=== PATIENT | female | born 1945 | race Caucasian/White ===

== ENCOUNTER 2021-02-25 12:46 | Day surgery (SDC) | payer MEDICARE, OTHER ==
[~2021-02-25] VITALS: Ht 160 cm; Wt 94.0 kg
[~2021-02-25 12:46] MED LIST: ADVIL200 M1 PO; ARIMIDEX1 MG PO; ATENOLOL50 MG PO; CALCIUM500 M1 PO; CITRACAL + D E1 EACH PO; CLONAZEPAM0.5 MG PO; CYCLOBENZAPRINE10 MG PO; DILTIAZEM 24HR180 MG PO; DULOXETINE HCL30 MG PO; ECOTRIN325 MG PO; GLUCOPHAGE XR500 MG PO; LASIX20 MG PO; LIPITOR40 MG PO; MOBIC15 MG PO; MUCINEX600 MG PO; MULTI VITAMIN1 EACH PO; PRINIVIL20 MG PO; PROAIR HFA8.5 GM INH; PROPRANOLOL HCL20 MG PO; PROZAC20 MG PO; VITAMIN B122500 MCG PO; VITAMIN D31000 UNI1 PO
--- NOTE | 2021-02-25 13:22 | NUR ---
vitals taken, no other needs at this time, call light withn reach
--- NOTE | 2021-02-25 15:13 | NUR ---
PT IS GIVEN VERBAL DC INSTRUCTIONS WITH PRESENT. THEY VERBALIZE UNDERSTANDING. SHE AMBULATES HERSELF OUT OF THE DEPARTMENT TO HER CAR.
--- NOTE | 2021-02-25 18:29 | OR ---
[facility] [address] [place], [place] [address] Signed DATE OF OPERATION: 02/25/2021 SURGEON: Joanna Shirley MD PREOPERATIVE DIAGNOSES: 1. Right upper outer quadrant breast mass. 2. History of right upper outer quadrant breast cancer with lumpectomy, radiation therapy, and hormonal management in 2007 (Dr. Herrera ). POSTOPERATIVE DIAGNOSES: 1. Right upper outer quadrant breast mass. 2. History of right upper outer quadrant breast cancer with lumpectomy, radiation therapy, and hormonal management in 2007 (Dr. Herrera ). PROCEDURE: Ultrasound-guided right upper outer quadrant breast biopsy biopsy). ANESTHESIA: Local 0.25% Marcaine with epinephrine. INDICATION: This 75-year-old white woman is a patient of Shaggy Chance PA-C and was referred by Dr. Wilson with findings of a palpable mass in the upper outer aspect of the right breast. This is in the same area in which she underwent lumpectomy, sentinel lymph node biopsy, radiation therapy, and Arimidex therapy in 2007 for diagnosed infiltrating ductal breast carcinoma. Mammograms have shown a calcific lesion in the area of prior excision for at least 3 years that I have reviewed, but a recent mammogram shows some changes in the area that are somewhat worrisome for malignant degeneration. She has no regional adenopathy or signs of metastatic disease. Rather than proceeding directly to mastectomy on a presumption, this represents malignancy. I have recommended biopsy to affirm that. An ultrasound-guided core biopsy would be most appropriate. If biopsy is proven to be benign, I would recommend excisional biopsy and only then if malignancy is identified, proceeding to mastectomy as definitive treatment. The patient and her understand this recommendation and wished to proceed with core biopsy at this time. FINDINGS: Ultrasound evaluation clearly showed the mass. It is palpable as well, however. Multiple biopsies were taken of at least 6 to 8 in total, which allowed some Electronically Signed By: JOANNA SHIRLEY MD 02/25/21 1829 PATIENT NAME: JESIKA FOFANA OPERATIVE REPORT DATE OF : 41 REPORT #: [id number] PHYSICIAN: JOANNA SHIRLEY MD PCP: SHAGGY CHANCE PAC REPORT IS CONFIDENTIAL AND NOT TO BE RELEASED WITHOUT AUTHORIZATION [facility] [address] [place], [place] [address] Signed decompression of it, at least in its bulkiness. There was a somewhat thin oily clear fluid emanated from the excision site of the biopsy site suggesting a somewhat cystic component to it as well. There were no complications. DESCRIPTION OF PROCEDURE: The patient was brought to the Day Surgery Area in room #6 and placed in a semi-recumbent position. Evaluation of the right breast with ultrasound confirmed the palpable mass as expected. The raquel-tumoral changes seen on mammogram were not particularly visualized on ultrasound. The breast was then prepared with a chlorhexidine solution and draped sterilely. 1% lidocaine was injected locally. A small incision made with an #11 blade. Ultrasound evaluation was undertaken once again after application of sterile sleeve to the ultrasound probe. The needle was aligned with the mass and the breast parenchyma elevated and multiple biopsies taken directly through the mass. A somewhat thickened, but clear fluid emanated from the site is small amount and the mass itself appeared to be less predominant. However, it remained on ultrasonographic visualization. To better align the needle, a more medial small incision was made and an additional biopsy taken, clearly penetrating through the central portion of the offending lesion providing a good core biopsy as well. Band-Aid was applied to the 2 biopsy sites. There appeared to be no sign of bleeding or other problem. CONCLUDING DIAGNOSIS: Breast mass well biopsied at this time. PLAN: If malignancy is noted, then treatment would be recommended to be total mastectomy, sentinel lymph node biopsy, possible axillary dissection. She has already undergone lumpectomy, radiation therapy, and hormonal management in 2007. If the lesion proves to be benign, I would recommend excisional biopsy to definitively ascertain that there is malignancy before proceeding any further. She understands this. MD HAN May/MODL /[id number] Electronically Signed By: JOANNA SHIRLEY MD 02/25/21 1829 PATIENT NAME: JESIKA FOFANA OPERATIVE REPORT DATE OF : 41 REPORT #: [id number] PHYSICIAN: JOANNA SHIRLEY MD PCP: [facility] REPORT IS CONFIDENTIAL AND NOT TO BE RELEASED WITHOUT AUTHORIZATION [facility] [address] [place] [address] Signed cc: BREANNA Bourne MD Copies: SHAGGY CHANCE ROBERT C MD ~ Electronically Signed By: JOANNA SHIRLEY MD 02/25/21 1829 PATIENT NAME: JESIKA FOFANA OPERATIVE REPORT DATE OF : 41 REPORT #: [id number] PHYSICIAN: JOANNA SIHRLEY MD PCP: SHAGGY CHANCE REPORT IS CONFIDENTIAL AND NOT TO BE RELEASED WITHOUT AUTHORIZATION
--- NOTE | 2021-02-26 12:18 | PATH ---
[facility] [address] [facility] [place], [place] [address] Signed SPECIMEN(S): A RIGHT BREAST, RUQ SPECIMEN SOURCE: A. RIGHT BREAST, RUQ CLINICAL HISTORY: Calcified mass FINAL PATHOLOGIC DIAGNOSIS: Breast, right, upper outer quadrant, needle core biopsies: - Dense fibrotic breast tissue with microcalcification. 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 There is no evidence of atypical duct hyperplasia or carcinoma present in these sections. TWK:emh:C2NR MICROSCOPIC EXAMINATION: Histologic sections of all submitted blocks are examined by light microscopy. These findings, together with the gross examination, support the pathologic diagnosis. GROSS DESCRIPTION: The specimen, labeled "KF," and designated on the requisition "right upper outer quadrant breast," is received in formalin and consists of four fatty fibrous tissue cores and fragments measuring up to 0.2 cm in diameter and ranging 0.4 to 1.0 cm in length. Cores and fragments are inked with eosin and entirely submitted in cassette(s) A1. Cold ischemic time: Cannot be determined because of lack of information Approximate time in formalin: Cannot be determined, no collection time is provided AT (under the direct supervision of a pathologist) The Gross Description was prepared using a voice recognition system. The report was reviewed for accuracy; however, sound-alike word errors, addition and/or deletions may occur. If there is any question about this report, please contact Client Services. PERFORMING LABORATORY: The technical component was performed by [employer], [address] [place] [address] (Lobsterman: Sparkle Carbajal MD; CLIA# [id number]). PATIENT NAME: JESIKA FOFANA PATHOLOGY DATE OF : 41 REPORT #: [id number] PHYSICIAN: GOOD MELARA PCP: SHAGGY LANDRY PAC REPORT IS CONFIDENTIAL AND NOT TO BE RELEASED WITHOUT AUTHORIZATION [facility] [address] [place], [place] [address] Signed Professional interpretation was performed by [employer] [facility], [address] [place] [address] (CLIA# [id number]). Diagnostician: Johnnie Kennedy MD Pathologist Electronically Signed 02/26/2021 Copies: ~ PATIENT NAME: JESIKA FOFANA PATHOLOGY DATE OF : 41 REPORT #: [id number] PHYSICIAN: GOOD MELARA PCP: SHAGGY LANDRY PAC REPORT IS CONFIDENTIAL AND NOT TO BE RELEASED WITHOUT AUTHORIZATION
[2021-03-18] MEDS ORDERED: DILT-XR180 MG PO (15:21)
[2021-03-18] MEDS ORDERED: MULTI-VITAMIN1 EACH PO (15:21)
[2021-03-18] MEDS ORDERED: CARBIDOPA25 MG PO (15:21)
[2021-03-18] MEDS ORDERED: K-TAB ER20 MEQ PO (15:22)
== END 2021-02-25 18:00 | disposition home or self-care (01) ==
LOC: OPS 12:46 → DS 12:46 → OPS 13:45
PROVIDERS: ATTEND Surgery
PROC: 0H9T3ZX Drainage of Right Breast, Percutaneous Approach, Diagnostic (ICD-10-PCS; principal; 2021-02-25)
DX: N60.31 Fibrosclerosis of right breast (principal); R92.0 Mammographic microcalcification found on diagnostic imaging of breast; E66.9 Obesity, unspecified; G20 Parkinson's disease; I10 Essential (primary) hypertension; J45.909 Unspecified asthma, uncomplicated; E78.5 Hyperlipidemia, unspecified; Z79.82 Long term (current) use of aspirin; Z85.3 Personal history of malignant neoplasm of breast; Z96.659 Presence of unspecified artificial knee joint; Z90.711 Acquired absence of uterus with remaining cervical stump; Z92.3 Personal history of irradiation; Z68.35 Body mass index [BMI] 35.0-35.9, adult
CPT/HCPCS: 88305

== ENCOUNTER 2021-03-19 07:31 | Day surgery (SDC) | payer MEDICARE, OTHER ==
[~2021-03-19] VITALS: Ht 160 cm; Wt 90.9 kg
[~2021-03-19 07:31] MED LIST changes: +CARBIDOPA25 MG PO; +DILT-XR180 MG PO; +K-TAB ER20 MEQ PO; +MULTI-VITAMIN1 EACH PO
--- NOTE | 2021-03-19 10:52 | NUR ---
03/19/21 1052 Jazlyn Wang 1035 PT ARRIVED IN PACU SLEEPY WITH NO C/O'S. 1045 OXYGEN REMOVED. SATS 98-100% ON RA.
[2021-03-19] MEDS ORDERED: IBUPROFEN600 MG PO (11:00)
[2021-03-19] MEDS ORDERED: HYDROCODON-ACE1 EA10 PO (11:01)
[2021-03-19] MEDS ORDERED: ACETAMINOPHEN500 MG PO (11:01)
--- NOTE | 2021-03-19 11:41 | NUR ---
1115: PT ARRIVES TO UNIT FROM PACU VIA STRETCHER. AWAKE AND ORIENTED ON ARRIVAL, CONVERSES APPROPRIATELY. VSS, RESP EVEN AND UNLABORED. DENIES PAIN AND NAUSEA AT THIS TME. JOHNNY PO FLUID INTAKE WELL. MINIMAL SHADOWING NOTED ON DRESSING. SCDS IN PLACE. NO NEEDS VOICED, CALL LIGHT WITHIN REACH. ATTENTIVE AT THE BEDSIDE
--- NOTE | 2021-03-19 12:31 | NUR ---
1115: PT WATCHES TV COMFORTABLY IN BED. VSS, RESP EVEN AND UNLABORED. CONTS TO DENY PAIN AND NAUSEA. NO CHANGE TO DRESSING AT THIS TIME. SCDS REMOVED AND IV CONVERTED TO SL. PT DANGLES AT THE BEDSIDE, JOHNNY WELL. DENIES DIZZINESS AND SOB. AMBULATES TO BR WITH STANDBY ASSIST FROM THIS RN. STEADY GAIT. SUCCESSFUL POSTOP VOID 300ML. BACK TO ROOM 4 TO PREPARE FOR D/C
--- NOTE | 2021-03-19 12:48 | NUR ---
1235: SL D/C'D WITH CATH TIP INTACT AND PRESSURE APPLIED TO SITE, WNL. D/C INSTRUCTIONS PROVIDED AND DISCUSSED ORDERED. PT VOICES UNDERSTANDING AND DENIES QUESTIONS AND CONCERNS AT THIS TIME. 1240: PT WHEELED OFF OF UNIT BY ADELE PIZANO FOR D/C. RESP EVEN AND UNLABORED. NO PHYSICAL S/S OF DISTRESS AT THIS TIME
--- NOTE | 2021-03-19 18:38 | EKG ---
[facility] [address] [facility] [place] [facility] [place], [place] [address] Signed Normal sinus rhythm Low voltage QRS Cannot rule out Anterior infarct , age undetermined Abnormal ECG No previous ECGs available Confirmed by ERNST VALERIO DO ([id number]) on 03/19/2021 6:38:06 PM Electronically Signed By: ERNST VALERIO DO 03/19/21 1838 PATIENT NAME: JESIKA FOFANA BARRETT Electrocardiogram DATE OF : 41 PHYSICIAN: ERNST VALERIO DO REPORT #: [id number] REPORT IS CONFIDENTIAL AND NOT TO BE RELEASED WITHOUT AUTHORIZATION
--- NOTE | 2021-03-21 16:26 | OR ---
[facility] [address] [place], [place] [address] Signed DATE OF OPERATION: 03/19/2021 SURGEON: Joanna Shirley MD PREOPERATIVE DIAGNOSES: 1. Right lateral complex breast mass suspicious for recurrent cancer. 2. History of right lumpectomy, sentinel lymph node biopsy and radiation therapy 2007 (Dr. Herrera, [place]). POSTOPERATIVE DIAGNOSES: 1. Right lateral complex breast mass suspicious for recurrent cancer. 2. History of right lumpectomy, sentinel lymph node biopsy and radiation therapy 2007 (Dr. Herrera, [place]). PROCEDURE: Partial mastectomy, excision of complex breast mass, right lateral breast. ANESTHESIA: General LMA, Napoleon Thornton CRNA and local 10 mL of 0.25% Marcaine with epinephrine. INDICATION: This 75-year-old white woman was referred by Dr. Wilson for consideration of right mastectomy. She is a patient of NYDIA Bourne. The patient underwent a breast cancer treatment for a T2N0M0 stage IIA ER/OH positive right breast cancer in [address] Herrera in [place]. Treatment included radiation therapy in addition to resection as well as Arimidex therapy. She has been noted on surveillance mammography to have a calcified mass approximately 3 cm in size in the right lateral breast. A more recent mammogram performed showed changes adjacent to the calcific mass, which is long-standing, which was concerning for malignancy. Although, she was referred for a total mastectomy on the basis of a presumption of recurrent breast cancer, the diagnosis has not yet been histologically confirmed. Initially, I had intended a core biopsy be performed to confirm malignancy and then proceed likely with mastectomy. However upon review of her many imaging studies and so forth, the dominant palpable mass corresponds to a long-standing calcific mass that may or may not be accurately obtained with a core biopsy device. My initial plan had been core biopsy followed by excisional biopsy of pathology was benign. Under the circumstances of uncertainty as to accuracy for the core biopsy, I have recommended at this time excisional biopsy, which would likely represent really partial mastectomy given its size with consideration for subsequent mastectomy if malignancy should in fact be identified. If there is no malignancy and the lesion is simply residual calcific nodule from prior intervention then no additional Electronically Signed By: JOANNA SHIRLEY MD 03/21/21 1626 PATIENT NAME: JESIKA FOFANA OPERATIVE REPORT DATE OF : 41 REPORT #: [id number] PHYSICIAN: JOANNA SHIRLEY MD PCP: SHAGGY LANDRY PAC REPORT IS CONFIDENTIAL AND NOT TO BE RELEASED WITHOUT AUTHORIZATION [facility] [address] [place], [place] [address] Signed therapy would be needed. The risks of bleeding, infection, cosmetic deformity, and so forth were reviewed with the patient and her , they understand and wished to proceed. FINDINGS: mass was quite firm and fibrotic overall. Wide excision was undertaken with clinically negative margins. It remains uncertain as to whether the lesion is malignant or not. Final pathology is pending. There was noted to be some fibrosis of the chest wall, likely from prior radiation therapy. There was no sign of adenopathy noted. DESCRIPTION OF PROCEDURE: The patient was brought to the operating room, given a general anesthetic by LMA technique. Preoperative antibiotic Ancef was given. Sequential compression device stockings were used and heparin subcutaneously administered. The abdomen was prepared with a chlorhexidine solution and draped sterilely. The palpable mass was rather bulky measuring at least the size of a golf ball or perhaps a plum. Elliptical incision of skin was undertaken directly over the mass in the lateral aspect of the right breast. Dissection was carried through the dermis with electrocautery. Some fibrotic changes were noted, likely related to prior radiation therapy. Wide resection was undertaken down to the chest wall, which did demonstrate fibrotic muscle fibers. Lateral excision was widely undertaken as well. Hemostasis was assured with electrocautery and 2-0 silk ties as the area was rather hypervascular. Clinically negative margins were accomplished. The wound was closed with interrupted 2-0 Vicryl in deep parenchymal area and excision of dog ears medially rather inferior and laterally undertaken. Good cosmesis was noted at conclusion. This did not represent simple excisional biopsy, but rather partial mastectomy actually given the extent of resection and so on. Steri-Strips were applied after application of 20 mL of 0.25% Marcaine with epinephrine. An Acticoat type dressing was applied. She was allowed to emerge from anesthesia, taken to the recovery room in good condition having suffered no complications. Sponge, needle, and counts reported as correct x3. Blood loss was estimated at 25 mL. MD HAN May/MODL /[id number] Electronically Signed By: JOANNA SHIRLEY MD 03/21/21 1626 PATIENT NAME: JESIKA FOFANA OPERATIVE REPORT DATE OF : 41 REPORT #: [id number] PHYSICIAN: JOANNA SHIRLEY MD PCP: SHAGGY LANDRY REPORT IS CONFIDENTIAL AND NOT TO BE RELEASED WITHOUT AUTHORIZATION [place] [address] [place] [address] Signed cc: BREANNA Bourne MD Copies: SHAGGY LANDRY ROBERT C MD ~ Electronically Signed By: JOANNA SHIRLEY MD 03/21/21 1626 PATIENT NAME: JESIKA FOFANA OPERATIVE REPORT DATE OF : 41 REPORT #: [id number] PHYSICIAN: JOANNA SHIRLEY MD PCP: SHAGGY LANDRY REPORT IS CONFIDENTIAL AND NOT TO BE RELEASED WITHOUT AUTHORIZATION
--- NOTE | 2021-03-26 15:21 | PATH ---
[facility] [address] [place], [place] [address] Signed SPECIMEN(S): A RIGHT LATERAL BREAST MASS SPECIMEN SOURCE: A. RIGHT LATERAL BREAST MASS CLINICAL HISTORY: Right breast cancer history. Specimen Time to Fixation- 03/19/2021 10:14:00 AM FINAL PATHOLOGIC DIAGNOSIS: Breast, right lateral, mass, excision: - Calcified fat necrosis, hyalinization and abscess formation of prior lumpectomy site. - Fat necrosis, abscess formation, chronic inflammation, and soft tissue necrosis of the soft tissue surrounding the previous lumpectomy site, extending into deep dermis. - No evidence of residual/recurrent carcinoma. COMMENT: The history of T2 N0 M0 ER/ND positive right breast cancer status post lumpectomy, chemotherapy, and radiation therapy in 2007, now presenting with right breast pain in lumpectomy scar is noted. The prior lumpectomy cavity and the surrounding soft tissue of the excision specimen were extensively sampled to reveal the above mentioned findings. There is no evidence of residual or recurrent carcinoma. NAL:cml:C2NR MICROSCOPIC EXAMINATION: Histologic sections of all submitted blocks are examined by light microscopy. These findings, together with the gross examination, support the pathologic diagnosis. GROSS DESCRIPTION: The specimen, labeled "KF," and designated on the requisition "right lateral breast mass, right breast ca history," is received in formalin and consists of an 81 g, irregularly-shaped, somewhat discoid, 8.2 x 6.3 x 3.6 cm lumpectomy specimen that is oriented with a short suture indicating superior and a long suture indicating lateral. On the anterior surface of the specimen is an irregularly shaped, pedroza, 5.5 x 5.2 cm, somewhat heart shaped segment of skin PATIENT NAME: JESIKA FOFANA PATHOLOGY DATE OF : 41 REPORT #: [id number] PHYSICIAN: GOOD PATHOLOGY PCP: SHAGGY LANDRY PAC REPORT IS CONFIDENTIAL AND NOT TO BE RELEASED WITHOUT AUTHORIZATION [facility] [address] [place], [place] [address] Signed with a centrally located, pedroza-pink, 1.6 x 1.5 cm flat, softened area that is 0.4 cm from the nearest resection margin. The specimen is inked as follows: superior = blue; inferior = green; anterior = yellow; posterior = black; medial = red; lateral = orange. The specimen is sectioned from superior to inferior into thirteen slices to reveal a 2.7 x 2.5 x 1.4 cm cavity (slice 9-13) that contains a copious amount of pedroza-white, pasty material. The cavity is lined by fibrous and partially calcified pedroza-white fibrous tissue. The cavity is associated with the softened skin surface lesion. The cavity is 0.6 cm from the medial margin, 0.6 cm from the inferior margin, 1.1 cm from the deep margin, 1.5 cm from the anterior margin, 2.2 cm from the lateral margin, and 5.2 cm from the superior margin. An additional discrete mass/lesion is not grossly identified. The remaining parenchyma is comprised of yellow fibrofatty and pedroza-white fibroglandular tissue. Fibroglandular tissue comprises approximately 5% of the remaining parenchyma. A biopsy marker is not grossly identified. Flavoring Machine Operator sections are submitted as follows: (A1-A2) - cavity to skin lesion, perpendicular sections of the slice 13. (A3) - cavity to inferior and medial margin (slice 12) (A4) - cavity to deep margin (slice 11) (A5) - cavity to medial margin (slice 11) (A6) - cavity to anterior margin (slice 11) (A7) - nearest lateral margin to cavity (slice 11) (A8) - perpendicular sections of the superior end (slice one) (A9) - client relations representative of remaining parenchyma (slice 5) Cold ischemic time: 3 minutes per requisition form. Formalin fixation time: Approximately 23.5 hours. AI (under the direct supervision of a pathologist) Per request by Dr. Aragon, the remainder of the fibrous tissue surrounding the cavity is submitted as follows: (A10) slice 9 (A11-A14) slice 10 (A11-A12 and A13-A14 are bivalved sections) (A15-A16) slice 11 (A16 is a bivalved section) (A17-A27) slice 12 (A17-A18 is a bivalved section; A19-A21, A22-A24,and A25-A27 are trivalved sections) (A28-A40) perpendicularly sectioned slice 13 entirely (A30-A31 is a bisected section) AI 03/25/21 12:20 PM The Gross Description was prepared using a voice recognition system. The report PATIENT NAME: JESIKA FOFANA PATHOLOGY DATE OF : 41 REPORT #: [id number] PHYSICIAN: GOOD MELARA PCP: SHAGGY LANDRY PAC REPORT IS CONFIDENTIAL AND NOT TO BE RELEASED WITHOUT AUTHORIZATION [address] [address] Signed was reviewed for accuracy; however, sound-alike word errors, addition and/or deletions may occur. If there is any question about this report, please contact Client Services. PERFORMING LABORATORY: The technical component was performed by [employer], [address] [place] [address] (Pharmacy Stock Clerk: Sparkle Carbajal MD; CLIA# [id number]). Professional interpretation [facility], [address] [place], [place] [address] [address] (CLIA# [id number]). Diagnostician: Kylah Aragon MD Pathologist Electronically Signed 03/26/2021 Copies: ~ PATIENT NAME: JESIKA FOFANA PATHOLOGY DATE OF : 41 REPORT #: [id number] PHYSICIAN: GOOD PATHOLOGY PCP: SHAGGY LANDRY PAC REPORT IS CONFIDENTIAL AND NOT TO BE RELEASED WITHOUT AUTHORIZATION
== END 2021-03-19 12:40 | disposition home or self-care (01) ==
LOC: DS 07:31
PROVIDERS: ATTEND Surgery
PROC: 0HBT0ZZ Excision of Right Breast, Open Approach (ICD-10-PCS; principal; 2021-03-19 08:15)
DX: N64.1 Fat necrosis of breast (principal); T81.42XA Infection following a procedure, deep incisional surgical site, initial encounter; N61.1 Abscess of the breast and nipple; Y83.8 Other surgical procedures as the cause of abnormal reaction of the patient, or of later complication, without mention of misadventure at the time of the procedure; I10 Essential (primary) hypertension; G20 Parkinson's disease; E78.5 Hyperlipidemia, unspecified; E66.9 Obesity, unspecified; Z68.35 Body mass index [BMI] 35.0-35.9, adult; Z88.5 Allergy status to narcotic agent; Z85.3 Personal history of malignant neoplasm of breast; Z92.3 Personal history of irradiation; Z96.659 Presence of unspecified artificial knee joint; Z90.711 Acquired absence of uterus with remaining cervical stump
CPT/HCPCS: 00404; 88305; 93005; 93010; J0131; J0690; J1100; J1885; J2001; J2405; J2704; J3010; J7121

== ENCOUNTER 2022-02-09 09:12 | Emergency (ER) | payer MEDICARE, OTHER ==
[~2022-02-09] VITALS: Ht 160 cm; Wt 87.1 kg
[~2022-02-09 09:12] MED LIST changes: +ACETAMINOPHEN500 MG PO; +HYDROCODON-ACE1 EA10 PO; +IBUPROFEN600 MG PO
--- OUTSIDE RECORDS SUMMARY | 2022-02-09 09:16 | XMS ---
PreManage Notification: JESIKA FOFANA Security Director Phone Events No recent Security Events currently on file [facility] There are no care providers on record at this time. Neftaly has no Care Guidelines for this patient. [facility] VISIT COUNT (12 MO.) 1 KIN [facility]er TOTAL 1 NOTE: Visits indicate total known visits. ED/UCC VISIT TRACKING (12 MO.) 02/09/2022 09:13 [facility] [place] TYPE: Emergency COMPLAINT: - UNABLE TO EAT, PAIN IN ABDOM/BACK,WEAKNESS INPATIENT VISIT TRACKING (12 MO.) No inpatient visits to display in this time frame [email or web address]
[2022-02-09] MEDS ORDERED: CARBIDOPA-LEVO1 EAC1 PO (09:39)
[2022-02-09] MEDS ORDERED: LISINOPRIL-HCT1 EACH PO (09:39)
[2022-02-09] MEDS ORDERED: FLUOXETINE HCL20 MG PO (09:39)
[2022-02-09] MEDS ORDERED: METFORMIN HCL500 M1 PO (09:39)
[2022-02-09] MEDS ORDERED: OMEPRAZOLE20 MG PO (09:39)
[2022-02-09] MEDS ORDERED: POTASSIUM CHLO10 ME1 PO (09:40)
[2022-02-09] MEDS ORDERED: CARAFATE1 GM PO (14:54)
--- NOTE | 2022-02-12 11:42 | EKG ---
[facility] [address] [facility] [place] [address] Signed Normal sinus rhythm Low voltage QRS Inferior infarct , age undetermined Cannot rule out Anterior infarct , age undetermined Abnormal ECG No previous ECGs available Confirmed by CARTER JUSTICE MD ([id number]) on 02/12/2022 11:41:58 AM Electronically Signed By: CARTER JUSTICE MD 02/12/22 1142 PATIENT NAME: JESIKA FOFANA BARRETT Electrocardiogram DATE OF : 41 PHYSICIAN: CARTER JUSTICE MD REPORT #: [id number] REPORT IS CONFIDENTIAL AND NOT TO BE RELEASED WITHOUT AUTHORIZATION
== END 2022-02-09 15:00 | disposition home or self-care (01) ==
LOC: ED 09:12
DX: K21.9 Gastro-esophageal reflux disease without esophagitis (principal); N17.9 Acute kidney failure, unspecified; Z85.3 Personal history of malignant neoplasm of breast; G20 Parkinson's disease; Z88.5 Allergy status to narcotic agent; Z91.030 Bee allergy status; Z79.899 Other long term (current) drug therapy; Z79.84 Long term (current) use of oral hypoglycemic drugs; Z79.82 Long term (current) use of aspirin; Z20.822 Contact with and (suspected) exposure to COVID-19
CPT/HCPCS: 36415; 71045; 74176; 74177; 80053; 81001; 83690; 84484; 85025; 87502; 93005; 93010; 99284-25; C9803; U0003

== ENCOUNTER 2025-07-09 20:18 | Emergency (ER) | payer MEDICARE, OTHER ==
[~2025-07-09] VITALS: Ht 160 cm; Wt 71.7 kg
--- NOTE | ~2025-07-09 | EKG ---
[facility] [address] [facility] [place], [place] [address] Draft EK completed, results pending confirmation PATIENT NAME: JESIKA FOFANA BARRETT Electrocardiogram DATE OF : 41 PHYSICIAN: PRELIMINARY REPORT #: [id number] REPORT IS CONFIDENTIAL AND NOT TO BE RELEASED WITHOUT AUTHORIZATION
[~2025-07-09 20:18] MED LIST changes: +CARAFATE1 GM PO; +CARBIDOPA-LEVO1 EAC1 PO; +FLUOXETINE HCL20 MG PO; +LISINOPRIL-HCT1 EACH PO; +METFORMIN HCL500 M1 PO; +OMEPRAZOLE20 MG PO; +POTASSIUM CHLO10 ME1 PO
--- OUTSIDE RECORDS SUMMARY | 2025-07-09 20:19 | XMS ---
PreManage Notification: JESIKA FOFANA Security Manager Universal Events No recent Security Events currently on file [facility] There are no care providers on record at this time. Neftaly has no Care Guidelines for this patient. [facility] VISIT COUNT (12 MO.) 1 KIN Shaffer TOTAL 1 NOTE: Visits indicate total known visits. ED/UCC VISIT TRACKING (12 MO.) 07/09/2025 20:18 [facility] [place] TYPE: Emergency COMPLAINT: - SEIZURE INPATIENT VISIT TRACKING (12 MO.) No inpatient visits to display in this time frame [email or web address]
[2025-07-09 20:43] LABS: BLOOD/HGB, URINE NEGATIVE (Negative); KETONE, URINE SMALL (Negative); LEUK ESTERASE, URINE NEGATIVE (negative); NITRITE, URINE NEGATIVE (negative)
[2025-07-09 20:55] LABS: ALCOHOL, MEDICAL <3 ng/dL (<3); ALT (SGPT) 9 U/L (14-59); AST (SGOT) 13 U/L (15-37); GLOMERULAR FILTRATION RATE,EST 85 mL/min (>60); PROTEIN, TOTAL 7.4 g/dL (6.4-8.2); UREA NITROGEN 19 mg/dL (7-18)
[2025-07-09 20:55] LABS: BASOPHILS 0.4 % (0.1-1.2); EOSINOPHILS 0.7 % (0.7-5.8); LYMPHOCYTES 21.0 % (19.3-51.7); MCH 31.3 PG (25.6-32.2); MCHC 33.8 g/dL (32.2-35.5); MCV 92.7 fL (79.4-94.8); MONOCYTES 8.1 % (4.7-12.5); NEUTROPHILS 69.5 % (34.0-71.1); RBC 4.53 M/uL (3.93-5.22)
[2025-07-09 20:57] LABS: AMPHETAMINES, URINE NEGATIVE (NEGATIVE); BARBITURATES, URINE NEGATIVE (NEGATIVE); BENZODIAZEPINE, URINE NEGATIVE (NEGATIVE); CANNABINOID, URINE NEGATIVE (NEGATIVE); COCAINE, URINE NEGATIVE (NEGATIVE); ECSTASY, URINE NEGATIVE (NEGATIVE); FENTANYL, URINE NEGATIVE (NEGATIVE); METHADONE, URINE NEGATIVE (NEGATIVE); OPIATES, URINE NEGATIVE (NEGATIVE); OXYCODONE, URINE NEGATIVE (NEGATIVE); PHENCYCLIDINE, URINE NEGATIVE (NEGATIVE)
[2025-07-09] MEDS ORDERED: MAG-OXIDE200 MG PO (20:59)
[2025-07-09] MEDS ORDERED: ASPIRIN81 MG PO (20:59)
[2025-07-09 22:01] VITALS: BP 162/94
[2025-07-10] MEDS ORDERED: CLONAZEPAM0.5 MG PO (20:31)
== END 2025-07-09 22:38 | disposition home or self-care (01) ==
LOC: ED 20:18
PROVIDERS: Internal Medicine
DX: G40.909 Epilepsy, unspecified, not intractable, without status epilepticus (principal); Z88.5 Allergy status to narcotic agent; Z88.8 Allergy status to other drugs, medicaments and biological substances; Z91.030 Bee allergy status; Z79.899 Other long term (current) drug therapy
CPT/HCPCS: 36415; 80053; 80307; 81003; 85025; 93005; 93010; 99284; G0480

== ENCOUNTER 2025-07-10 19:14 | Emergency (ER) | payer MEDICARE, OTHER ==
[~2025-07-10] VITALS: Ht 160 cm; Wt 71.7 kg
[~2025-07-10 19:14] MED LIST changes: +ASPIRIN81 MG PO; +MAG-OXIDE200 MG PO
--- OUTSIDE RECORDS SUMMARY | 2025-07-10 19:15 | XMS ---
PreManage Notification: JESIKA FOFANA Security Learning Support Assistant Events No recent Security Events currently on file CRITERIA MET - [facility] [place] [facility] - 2 Visits in 30 Days CARE PROVIDERS There are no care providers on record at this time. Neftaly has no Care Guidelines for this patient. [facility] VISIT COUNT (12 MO.) [facility] NOTE: Visits indicate total known visits. ED/C VISIT TRACKING (12 MO.) 07[facility]2025 19:[facility] COMPLAINT: - WITHDRAWL 07/09/2025 20:18 [facility] [place] TYPE: Emergency COMPLAINT: - SEIZURE INPATIENT VISIT TRACKING (12 MO.) No inpatient visits to display in this time frame [id number]
[2025-07-10] MEDS ORDERED: clonazePAM 0.5 MG TAB PO ONE (20:30)
[2025-07-10] MEDS ORDERED: CLONAZEPAM0.5 MG PO ×2 (20:31→20:59)
[2025-07-10 22:01] VITALS: BP 123/71
== END 2025-07-10 22:02 | disposition home or self-care (01) ==
LOC: ED 19:14
DX: F03.90 Unspecified dementia, unspecified severity, without behavioral disturbance, psychotic disturbance, mood disturbance, and anxiety (principal); Z79.82 Long term (current) use of aspirin; Z79.84 Long term (current) use of oral hypoglycemic drugs; Z79.899 Other long term (current) drug therapy; Z91.030 Bee allergy status; Z88.5 Allergy status to narcotic agent; Z88.8 Allergy status to other drugs, medicaments and biological substances
CPT/HCPCS: 99284